=== PATIENT | female | born 1970 | race Caucasian/White ===

== ENCOUNTER → 2020-05-23 07:53 | Outpatient (BNVA) | payer MEDICAID, SELFPAY | PROVIDERS: PCP Internal Medicine; Visit Provider Dietitian, Registered | DX: Z76.89 Persons encountering health services in other specified circumstances (principal) ==

== ENCOUNTER → 2020-06-20 07:56 | Outpatient (BNVA) | payer MEDICAID, SELFPAY | PROVIDERS: PCP Internal Medicine; Referring Provider Internal Medicine; Visit Provider Dietitian, Registered | DX: Z76.89 Persons encountering health services in other specified circumstances (principal) ==

== ENCOUNTER → 2020-10-17 08:19 | Outpatient (BNVA) | payer MEDICAID, SELFPAY | PROVIDERS: PCP Internal Medicine; Visit Provider Dietitian, Registered ==

== ENCOUNTER → 2020-10-29 10:12 | Outpatient (BNVA) | payer MEDICAID, SELFPAY | PROVIDERS: PCP Internal Medicine; Visit Provider Dietitian, Registered ==

== ENCOUNTER → 2020-11-20 08:13 | Outpatient (BNVA) | payer MEDICAID, SELFPAY | PROVIDERS: PCP Internal Medicine; Visit Provider Physician Assistant ==

== ENCOUNTER → 2022-01-09 10:34 | Outpatient (BNVA) | payer MEDICAID, SELFPAY | PROVIDERS: PCP Internal Medicine; Visit Provider Physician Assistant Surgical | DX: E66.3 Overweight (principal); Z68.27 Body mass index [BMI] 27.0-27.9, adult; Z98.84 Bariatric surgery status | CPT/HCPCS: 99212 ==

== ENCOUNTER 2024-09-27 10:29 | Outpatient (AMB) | payer OTHER, SELFPAY ==
--- NOTE | 2024-09-27 10:06 | A.OFFVIS_ITS ---
VS Expanded 09/27/24 10:07 Height 5 ft 2.5 in Weight 143 lb 5 oz BMI 25.8 Intake Visit Reasons: TELEPHONE POST OP 02/14/19 follow up Allergies No Known Allergies [No Known Allergies*] Allergy (Unverified 06/02/23 08:34) Medication List - Last Reconciled 09/27/24 by DANAY Parada bupropion HCl XL 300 mg PO DAILY lisinopril-hydrochlorothiazide 20-12.5 mg 1 tab PO BID lorazepam 0.25 mg PO BID PRN omeprazole 20 mg PO DAILY HPI Comments Details: 54 year old female s/p LSG 01/2019. Starting weight 199; current weight 143.5lbs. TBWL 27.9%. Current meal plan: smaller meals, no bars/shakes; tries to choose higher protein options. She does not track protein intake. Pt reports issues of excess skin of abdomen. Has to wear compressive torso garment to hold skin in place. Has to always wear a compressive talk top and pull underwear up higher to help with support. Pt reports excess moisture can collect in the skin fold which may develop an unpleasant odor and she has to use wipes to clean to prevent rashes and skin irritation. She finds that the excess skin gets in the way with movement and feels uncomfortable. [facility] Surgical History (Updated 06/02/23 @ 08:34 by Cheyenne Jimenez) S/P laparoscopic sleeve gastrectomy Family History (System 06/02/23 @ 08:34 by Cheyenne Jimenez) Father Kidney problem Social History (System 06/02/23 @ 08:34 by Cheyenne Jimenez) Alcohol intake: current Patient Tobacco Use Status: Former Tobacco user Telehealth Telehealth Telehealth Platform: Telephone Location of provider rendering services: other Location of patient: address on file Patient Identification confirmed using: Name, : Yes Telehealth method: voice only Patient verbally consented to treatment: Yes Patient verbally consented to billing insurance company: Yes Patient informed of any privacy concerns related to visit: Yes Minutes spent on Phone/Video with Pt.: 22 Assessment & Plan Assessment & Plan (1) Overweight: Code(s): E66.3 - Overweight Category: Medical (2) S/P laparoscopic sleeve gastrectomy: Code(s): Z98.84 - Bariatric surgery status Category: Surgical (3) Excess skin: Code(s): L98.7 - Excessive and redundant skin and subcutaneous tissue Category: Medical Plan Pt unsure whether she wants to proceed with panniculectomy. 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 Discussed getting to protein goal 60g/day and reincorporating bars/shakes which she is willing to do. Follow up 6w for in person visit for physical exam. I spent a total of 30 minutes reviewing/updating records, examining the patient and counseling the patient on weight management as detailed above.
[2024-09-27 10:07] VITALS: BMI 25.8
--- OUTSIDE RECORDS SUMMARY | 2024-09-27 12:53 | XMS_ITS | Clinical Summary ---
Author Organization [employer] Address [address] [place] [address] Care Team Providers Care Acid Condenser Name Role Phone Unavailable Primary Care Provider Unavailabl e Allergies No known active allergies Medications buPROPion XL (Wellbutrin XL) 300 MG 24 hr tablet Take 1 tablet by mouth. 01/20/2022 Active Omeprazole 20 MG tablet delayed-release Take 20 mg by mouth in the morning. Active lisinopril-hydro CHLOROthiazide 20-12.5 MG tablet Take 1 tablet by mouth 2 times daily. Daily 08/02/2022 Active Active Problems Patient Care Coordination No te Formatting of this note migh t be different from the original. [facility] [id number] Problem Noted Date Diagnosed Date Hypertensive urgency 06/11/2023 06/11/2023 Gastroesophageal reflux disease without esophagi tis 06/11/2023 06/11/2023 Social History Tobacco Use Types Packs/Day Years Used Date Smoking Tobacco: Never Assessed Comments Unknown Sex and Gender Information Value Date Recorded Sex Assigned at Female 05/31/2023 1:49 PM EDT Legal Sex Female 8:39 PM EDT Gender Identity Female 05/31/2023 1:49 PM EDT Sexual Orientation Choose not to disclose 2022 8:16 AM EST Last Filed Vital Signs Vital Sign Reading Time Taken Comments Blood Pressure 148/94 05/08/2022 10:00 AM EDT Pulse - - Temperature - - Respiratory Rate - - Oxygen Saturation - - Inhaled Oxygen Concentration - - Weight - - Height - - Body Mass Index - - Plan of Treatment Health Maintenance Due Date Last Done Comments CT Colonography 1971 Colonoscopy 1971 Colorectal Cancer Screening 1971 Depression Screening 1971 FIT DNA/Cologuard 1971 FIT 1971 FOBT 1971 HIV Screening 1971 Lipid Panel 1971 SDOH Screening 1971 Sigmoidoscopy 1971 Alcohol/Substance Use Screening 1983 Tobacco Screening 1983 Hepatitis C Screening 1989 Hepatitis B Vaccines (1 of 3 - 19+ 3-dose series) 1990 Pap Smear 1992 Cervical Cancer Screening 2001 HPV/Cotest 2001 Mammogram 2011 Pneumococcal Vaccine: 50+ Years (1 of 1 - PCV) 2021 Zoster Vaccines (1 of 2) 2021 COVID-19 Vaccine (3 - 2023-2 5 season) 2024 12/10/2020, 11/11/2020 Influenza Vaccine (#1) 2024 2, 09/26/2020, 09/26/2020 DTaP/Tdap/Td Vaccines (2 - T d or Tdap) 09/26/2030 09/26/2020 RSV Patients and Patients Aged 60 years or older (1 - 1-dose 75+ series) 2046 HIB Vaccines Aged Out No longer eligi ble based on patient's age to complete this topic HPV Vaccines Aged Out No longer eligi ble based on patient's age to complete this topic Hepatitis A Vaccines Aged Out No long er eligible based on patient's age to complete this topic IPV Vaccines Aged Out No longer eligi ble based on patient's age to complete this topic Meningococcal Vaccine Aged Out No sandeep delia eligible based on patient's age to complete this topic Pneumococcal Vaccine: Pediatrics (0 to 5 Years) and At-Risk Patients (6 to 49) Years) Aged Out No longer eligible b ased on patient's age to complete this topic RSV under 20 months Aged Out No longe r eligible based on patient's age to complete this topic Rotavirus Vaccines Aged Out No longer eligible based on patient's age to complete this topic [place] [address] [address] STANDARD [facility] STANDARD HNE
--- OUTSIDE RECORDS SUMMARY | 2024-09-27 12:53 | XMS_ITS | Encounter Summary ---
Author Organization [email or web address] Address [address] [place] [address] Care Team Providers Care Administrative Court Justice Name Role Phone Unavailable Primary Care Provider Unavailabl e Reason for Visit * Reason Comments Med Refill Encounter Details Date Type Department Care Team (Late st Contact Info) Description 07/18/2023 Refill María Elena [facility] [address] [place] [address] Inez Jung, LUIS [address] [place] [address] Dry eye syndrome of both eyes Social History Tobacco Use Types Packs/Day Years Used Date Smoking Tobacco: Never Assessed Comments Unknown Sex and Gender Information Value Date Recorded Sex Assigned at Female 05/31/2023 1:49 PM EDT Legal Sex Female 8:39 PM EDT Gender Identity Female 05/31/2023 1:49 PM EDT Sexual Orientation Choose not to disclose 2022 8:16 AM EST documented as of this encounter Miscellaneous Notes * Telephone Encounter - Gerald Carr, OD - 07/20/2023 1:05 PM EST Approving, but needs appt for additional refills. documented in this encounter Plan of Treatment Not on file documented as of this encounter Visit Diagnoses Diagnosis Dry eye syndrome of both eyes documented in this encounter
== END 2024-09-27 10:38 | disposition home or self-care (01) ==
LOC: HO.HBS 10:29
PROVIDERS: PCP Internal Medicine; Visit Provider Physician Assistant Surgical
DX: L98.7 Excessive and redundant skin and subcutaneous tissue (principal); Z98.84 Bariatric surgery status
CPT/HCPCS: 99214; G2211